=== PATIENT | female | born 1995 | race Caucasian/White ===

== ENCOUNTER → 2020-07-31 09:20 | Observation (INO) ==
[~2020-07-31 09:20] MED LIST: FLU Vac QV 20-21 (6Month+)/PF 0.5 ML SYRINGE IM ONE
== END | disposition home or self-care (01) ==
LOC: 1NENULAB
PROVIDERS: ADMIT Registered Nurse; ATTEND Registered Nurse

== ENCOUNTER 2020-08-16 08:24 | Inpatient (IN) ==
[2020-08-16] MEDS ORDERED: Naloxone 0.4 MG/ML INJ IVP PRN (08:40)
[2020-08-16] MEDS ORDERED: Ondansetron 4 MG/2 ML VIAL IVP PRN (08:40)
[2020-08-16] MEDS ORDERED: miSOPROStoL 25 MCG TABLET PO PRN (08:40)
[2020-08-16] MEDS ORDERED: Lidocaine 1% 20 ML MDV INFILT PRN (08:40)
[2020-08-16] MEDS ORDERED: Azithromycin 500 MG in 0.9 % Sodium Chloride 250 ML IVPB PRN (08:40)
[2020-08-16] MEDS ORDERED: *HR* FentaNYL (PF) 100 MCG/2 ML VIAL IVP PRN (08:40)
[2020-08-16] MEDS ORDERED: Metoclopramide 10 MG/2 ML VIAL IVP PRN (08:40)
[2020-08-16] MEDS ORDERED: Famotidine 20 MG/2 ML VIAL IVP PRN (08:40)
[2020-08-16] MEDS ORDERED: Ringers Solution, Lactated 1,000 ML IVC SCH (08:45)
[2020-08-16] MEDS ORDERED: Oxytocin 20 units/ LR 1000 mL 20 UNIT/1,000 ML BAG IVC SCH (08:45)
[2020-08-16 09:18] LABS: Basophils % 0.3 %; Eosinophils # 0.1 K/mcL (0.0-0.6); Eosinophils % 0.5 %; Hematocrit 39.7 % (35.3-44.9); Hemoglobin 13.4 g/dL (11.5-15.4); Immature Granulocytes % 0.9 % (0-4); Lymphocytes # 1.7 K/mcL (0.6-4.6); Lymphocytes % 17.1 %; Mean Corpuscular HGB Conc 33.8 g/dL (31.6-35.5); Mean Corpuscular Hemoglobin 30.2 pg (28.0-33.3); Mean Corpuscular Volume 89.4 fL (83.0-100.0); Mean Platelet Volume 10.6 fL (9.4-12.4); Monocytes # 0.9 K/mcL (0.0-1.3); Monocytes % 9.1 %; Neutrophils # 7.2 K/mcL (1.6-8.9); Platelet Count 221 K/mcL (140-400); Red Blood Count 4.44 M/mcL (3.82-4.97); Red Cell Distribution Width 13.6 % (11.5-14.5); Segmented Neutrophils % 72.1 %
[2020-08-16 09:24] LABS: Amphetamine Screen,Urine Negative ng/mL (Cutoff=1000); Barbiturate Screen,Urine Negative ng/mL (Cutoff=200); Benzodiazepines Screen,Urine Negative ng/mL (Cutoff=200); Cannabinoid Screen,Urine Negative ng/mL (Cutoff = 50); Cocaine Screen,Urine Negative ng/mL (Cutoff= 300); Opiate Screen,Urine Negative ng/mL (Cutoff=300); Phencyclidine Screen,Urine Negative ng/mL (Cutoff=25)
[2020-08-16] MEDS ORDERED: 0.9 % Sodium Chloride 1,000 ML ONE (10:48)
[2020-08-16] MEDS ORDERED: *HR* FentaNYL (PF) 100 MCG/2 ML VIAL EP ONE (10:51)
[2020-08-16] MEDS ORDERED: EPHEDrine 50 MG/ML VIAL IVP PRN (10:51)
[2020-08-16] MEDS: Epidural Premix (fent/bupiv) 110 ML EP SCH ×2 (14:19→20:39)
[2020-08-17] MEDS ORDERED: Lanolin 7 G OINT...G. TP PRN (00:51)
[2020-08-17] MEDS ORDERED: Rho Immune Globulin 1,500 UNIT SYRINGE IM PRN (00:51)
[2020-08-17] MEDS ORDERED: Oxytocin 20 units/ LR 1000 mL 20 UNIT/1,000 ML BAG IVC SCH (00:51)
[2020-08-17] MEDS ORDERED: Acetaminophen 325 MG TABLET PO PRN (00:51)
[2020-08-17] MEDS ORDERED: Benzocaine/Menthol 56 GM AEROSOL SPRAY TP PRN (00:51)
[2020-08-17] MEDS: Ibuprofen 600 MG TABLET PO PRN ×3 (01:40→14:15)
[2020-08-17 06:32] LABS: Basophils % 0.1 %; Eosinophils % 0.1 %; Hematocrit 35.3 % (35.3-44.9); Immature Granulocytes % 0.6 % (0-4); Lymphocytes # 1.6 K/mcL (0.6-4.6); Lymphocytes % 11.6 %; Mean Corpuscular HGB Conc 33.1 g/dL (31.6-35.5); Mean Corpuscular Hemoglobin 29.7 pg (28.0-33.3); Mean Corpuscular Volume 89.6 fL (83.0-100.0); Mean Platelet Volume 10.5 fL (9.4-12.4); Monocytes # 1.4 K/mcL (0.0-1.3); Monocytes % 10.6 %; Neutrophils # 10.4 K/mcL (1.6-8.9); Platelet Count 191 K/mcL (140-400); Red Blood Count 3.94 M/mcL (3.82-4.97); Red Cell Distribution Width 13.6 % (11.5-14.5); White Blood Count 13.5 K/mcL (4.3-11.1)
[2020-08-17 06:37] LABS: Hemoglobin 11.7 g/dL (11.5-15.4)
[2020-08-17] MEDS: Prenatal Vit/FA 1 EACH TABLET PO SCH (07:30)
[2020-08-17] MEDS: *HR* HYDROcodone/Acet 5/325 mg TABLET PO PRN (20:19)
[2020-08-18] MEDS: Ibuprofen 600 MG TABLET PO PRN (05:26)
[2020-08-18 07:50] VITALS: BP 118/74
[2020-08-18] MEDS: *HR* HYDROcodone/Acet 5/325 mg TABLET PO PRN (08:32)
[2020-08-18] MEDS: Prenatal Vit/FA 1 EACH TABLET PO SCH (08:33)
== END 2020-08-18 12:30 | disposition home or self-care (01) | DRG 807 ==
LOC: 1NENULAB 08:24 → 1NENUOBS 08-17 00:49
PROVIDERS: ADMIT Obstetrics & Gynecology; ATTEND Obstetrics & Gynecology

== ENCOUNTER 2022-02-01 09:46 | Inpatient (IN) ==
[2022-02-01] MEDS ORDERED: *HR* Nalbuphine 10 MG/ML AMPUL IV PRN (11:24)
[2022-02-01] MEDS ORDERED: Ondansetron 4 MG/2 ML VIAL IVP PRN ×2 (11:24→14:06)
[2022-02-01] MEDS ORDERED: Naloxone 0.4 MG/ML INJ IVP PRN ×2 (11:24→14:06)
[2022-02-01] MEDS ORDERED: Metoclopramide 10 MG/2 ML VIAL IVP PRN (11:24)
[2022-02-01] MEDS ORDERED: Famotidine 20 MG/2 ML VIAL IVP PRN (11:24)
[2022-02-01] MEDS ORDERED: Ringers Solution, Lactated 1,000 ML IVC SCH (11:30)
[2022-02-01] MEDS ORDERED: Oxytocin 30 UNIT/503 ML BAG IVC SCH ×2 (12:30→23:36)
[2022-02-01 12:56] LABS: Basophils % 0.3 %; Eosinophils % 0.4 %; Hematocrit 39.1 % (35.3-44.9); Hemoglobin 13.2 g/dL (11.5-15.4); Immature Granulocytes % 0.8 % (0-4); Lymphocytes # 1.7 K/mcL (0.6-4.6); Lymphocytes % 19.1 %; Mean Corpuscular HGB Conc 33.8 g/dL (31.6-35.5); Mean Corpuscular Hemoglobin 30.2 pg (28.0-33.3); Mean Corpuscular Volume 89.5 fL (83.0-100.0); Mean Platelet Volume 10.8 fL (9.4-12.4); Monocytes # 0.8 K/mcL (0.0-1.3); Monocytes % 8.5 %; Neutrophils # 6.3 K/mcL (1.6-8.9); Platelet Count 175 K/mcL (140-400); Red Blood Count 4.37 M/mcL (3.82-4.97); Red Cell Distribution Width 14.5 % (11.5-14.5); Segmented Neutrophils % 70.9 %; White Blood Count 8.9 K/mcL (4.3-11.1)
[2022-02-01 13:18] LABS: Influenza A PCR Negative (Negative); Influenza B PCR Negative (Negative); Resp. Syncytial Virus PCR Negative (Negative)
[2022-02-01 13:19] LABS: SARS-CoV-2 by PCR (In House) Negative (Negative)
[2022-02-01] MEDS ORDERED: *HR* FentaNYL (PF) 100 MCG/2 ML VIAL EP ONE (14:06)
[2022-02-01] MEDS ORDERED: EPHEDrine 50 MG/ML VIAL IVP PRN (14:06)
[2022-02-01] MEDS ORDERED: Ropivacaine/PF 0.2% 20 ML VIAL EP ONE (14:06)
[2022-02-01] MEDS ORDERED: Epidural Premix (fent/bupiv) 110 ML EP SCH (14:15)
[2022-02-01 14:24] LABS: Amphetamine Screen,Urine Negative ng/mL (Cutoff=1000); Barbiturate Screen,Urine Negative ng/mL (Cutoff=200); Benzodiazepines Screen,Urine Negative ng/mL (Cutoff=200); Cannabinoid Screen,Urine Negative ng/mL (Cutoff = 50); Cocaine Screen,Urine Negative ng/mL (Cutoff= 300); Opiate Screen,Urine Negative ng/mL (Cutoff=300); Phencyclidine Screen,Urine Negative ng/mL (Cutoff=25)
[2022-02-01] MEDS ORDERED: Lanolin 7 G OINT...G. TP PRN (23:36)
[2022-02-01] MEDS ORDERED: Rho Immune Globulin 1,500 UNIT SYRINGE IM PRN (23:36)
[2022-02-01] MEDS ORDERED: Ondansetron ODT 4 MG TAB.RAPDIS SL PRN (23:36)
[2022-02-01] MEDS ORDERED: *HR* OxyCODONE Immed Rel 5 MG TABLET PO PRN (23:36)
[2022-02-01] MEDS ORDERED: Benzocaine/Menthol 56 GM AEROSOL SPRAY TP PRN (23:36)
[2022-02-02] MEDS: Ibuprofen 600 MG TABLET PO SCH ×2 (01:18→18:27)
[2022-02-02] MEDS: Acetaminophen 325 MG TABLET PO SCH ×2 (01:19→18:28)
[2022-02-02 05:40] LABS: Basophils % 0.3 %; Eosinophils # 0.1 K/mcL (0.0-0.6); Eosinophils % 0.5 %; Hematocrit 32.9 % (35.3-44.9); Immature Granulocytes % 0.7 % (0-4); Lymphocytes # 1.9 K/mcL (0.6-4.6); Lymphocytes % 15.1 %; Mean Corpuscular HGB Conc 34.3 g/dL (31.6-35.5); Mean Corpuscular Hemoglobin 30.4 pg (28.0-33.3); Mean Corpuscular Volume 88.4 fL (83.0-100.0); Mean Platelet Volume 10.9 fL (9.4-12.4); Monocytes # 1.4 K/mcL (0.0-1.3); Monocytes % 11.1 %; Platelet Count 160 K/mcL (140-400); Red Blood Count 3.72 M/mcL (3.82-4.97); Red Cell Distribution Width 14.4 % (11.5-14.5); Segmented Neutrophils % 72.3 %; White Blood Count 12.4 K/mcL (4.3-11.1)
[2022-02-02 05:43] LABS: Hemoglobin 11.3 g/dL (11.5-15.4)
[2022-02-02] MEDS ORDERED: Prenatal Vit/FA 1 EACH TABLET PO SCH (09:00)
[2022-02-02 20:08] VITALS: BP 125/90; PULSE 70; TEMP 97.9; O2SAT 98
== END 2022-02-02 19:50 | disposition home or self-care (01) | DRG 806 ==
LOC: 1NENULAB 09:46 → 1NENUOBS 23:00
PROVIDERS: ADMIT Obstetrics & Gynecology; ATTEND Obstetrics & Gynecology